=== PATIENT | male | born 1990 | race Caucasian/White ===

== ENCOUNTER → 2022-02-28 | Outpatient (CLI) | payer BC, OTHER ==
[~2022-02-28] MED LIST: ABILIFY 5 MG TAB5 MG PO; FLEXERIL 10 MG10 MG PO; GLUCOPHAGE1000 MG PO; HUMALOG 10100 UNITS/ SC; INDERAL LA60 MG PO; LANTUS INS100 UTS/M1 SQ; MEDROL4 MG PO; STARLIX 120 MG120 MG PO; VIIBRYD20 MG PO; ZANTAC 150 MG150 MG PO
== END ==
LOC: RAD 12:54
DX: R76.11 Nonspecific reaction to tuberculin skin test without active tuberculosis (principal)
CPT/HCPCS: 71046

== ENCOUNTER 2022-03-10 19:36 | Emergency (ER) | payer BC, OTHER ==
[2022-03-10] MEDS ORDERED: AMOX TR-K CLV1 EAC4 PO (20:52)
== END 2022-03-10 20:56 | disposition home or self-care (01) ==
LOC: ER1 19:36
DX: K11.20 Sialoadenitis, unspecified (principal); E11.9 Type 2 diabetes mellitus without complications; Z79.4 Long term (current) use of insulin; Z79.82 Long term (current) use of aspirin; F17.210 Nicotine dependence, cigarettes, uncomplicated
CPT/HCPCS: 96374; 96375; 99283

== ENCOUNTER 2022-05-11 13:17 | Emergency (ER) | payer BC, OTHER ==
[~2022-05-11 13:17] MED LIST changes: +AMOX TR-K CLV1 EAC4 PO
== END 2022-05-11 17:30 | disposition left against medical advice (07) ==
LOC: ER1 13:17
DX: Z53.21 Procedure and treatment not carried out due to patient leaving prior to being seen by health care provider (principal)